=== PATIENT | male | born 1995 | race Hispanic/Latino ===

== ENCOUNTER 2020-07-01 17:08 | Emergency (ER) | payer OTHER ==
[~2020-07-01] VITALS: Ht 167.6 cm; Wt 100.0 kg
[~2020-07-01 17:08] MED LIST: MOTRIN400 MG OR
[2020-07-02 00:33] VITALS: BP 132/78
--- NOTE | 2020-07-03 12:01 | NUR ---
Patient called for Covid results. Notified patient of Negative Covid results. Encouraged patient to cotinue practicing Covid prevention.
== END 2020-07-01 19:44 | disposition home or self-care (01) | DRG 951 ==
LOC: ED 17:08
DX: Z20.828 Contact with and (suspected) exposure to other viral communicable diseases (principal)